=== PATIENT | male | born 1990 | race Caucasian/White ===

== ENCOUNTER 2017-08-30 05:37 | Inpatient (IN) | payer OTHER ==
[~2017-08-30] VITALS: Ht 185.4 cm; Wt 96.0 kg
[2017-08-30] MEDS ORDERED: LACTATED RINGERS 1,000 ML IV SCH (06:37)
[2017-08-30] MEDS ORDERED: FENTANYL PF 250 MCG/5ML ONE ×2 (06:44→07:47)
[2017-08-30] MEDS ORDERED: MIDAZOLAM 1 MG/ML, 2ML ONE (06:44)
[2017-08-30] MEDS ORDERED: PROPOFOL 10 MG/ML, 20ML ONE (06:46)
[2017-08-30] MEDS ORDERED: ROCURONIUM 10MG/ML,5ML ONE (06:48)
[2017-08-30] MEDS ORDERED: SUCCINYLCHOLINE 20 MG/ML, 10ML ONE (06:48)
[2017-08-30] MEDS ORDERED: WATER-INJECTION,STERILE 10 ML IV ONE (06:49)
[2017-08-30] MEDS ORDERED: CEFAZOLIN 1,000 MG ONE ×2 (06:49)
[2017-08-30] MEDS ORDERED: EPINEPHRINE 1 MG/ML, 1ML ONE (06:55)
[2017-08-30] MEDS ORDERED: BUPIVACAINE/PF 0.5% ONE (06:55)
[2017-08-30] MEDS ORDERED: THROMBIN 20,000 UNIT VIAL TP ONE (06:55)
[2017-08-30] MEDS ORDERED: PROPOFOL 50 ML ONE ×2 (06:56→08:08)
[2017-08-30] MEDS ORDERED: BACITRACIN 50,000 UNIT ONE (06:56)
[2017-08-30] MEDS ORDERED: ACETAMINOPHEN 500 MG TABLET PO ONE (07:00)
[2017-08-30] MEDS ORDERED: OxyconTIN ER 20 MG TAB.ER PO ONE (07:00)
[2017-08-30] MEDS ORDERED: LIDOCAINE-MPF 1%, 2ML INFIL ONE (07:00)
[2017-08-30] MEDS ORDERED: TRAM50TA2 PO (07:04)
[2017-08-30] MEDS ORDERED: CYCL-259 PO (07:04)
[2017-08-30] MEDS ORDERED: MELA10CA PO (07:04)
[2017-08-30] MEDS ORDERED: GABA300C10 PO (07:04)
[2017-08-30] MEDS ORDERED: CITA40TA5 PO (07:05)
[2017-08-30 07:09] VITALS: BP 134/84
[2017-08-30] MEDS ORDERED: PROMETHAZINE 12.5 MG SUPP PR PRN (07:30)
[2017-08-30] MEDS ORDERED: MORPHINE SULFATE 4 MG/ML, 1ML IVPush PRN (07:30)
[2017-08-30] MEDS ORDERED: PROMETHAZINE 25 MG SUPP PR PRN (07:30)
[2017-08-30] MEDS ORDERED: hydrALAzine 20 MG/ML, 1ML IV PRN (07:30)
[2017-08-30] MEDS ORDERED: ONDANSETRON ODT 8 MG PO PRN (07:30)
[2017-08-30] MEDS ORDERED: HYDROmorphone 1 MG/ML, 1ML IV PRN (07:30)
[2017-08-30] MEDS ORDERED: MEPERIDINE/PF 25MG/0.5ML IVPush PRN (07:30)
[2017-08-30] MEDS ORDERED: DIAZEPAM 5 MG/ML, 2ML IVPush PRN (07:30)
[2017-08-30] MEDS ORDERED: PROMETHAZINE 25 MG/ML, 1ML IV PRN (07:30)
[2017-08-30] MEDS ORDERED: LABETALOL 5MG/ML, 20ML IV PRN (07:30)
[2017-08-30] MEDS: FENTANYL PF 100 MCG/2ML IV PRN ×4 (09:55→10:20)
[2017-08-30] MEDS ORDERED: FENTANYL PF 100 MCG/2ML ONE ×2 (09:55→10:20)
[2017-08-30] MEDS: OXYcodone 5 MG/5 ML ORAL.SOL UDC PO PRN ×2 (11:59→12:30)
== END 2017-08-30 14:10 | disposition home or self-care (01) | DRG 519 ==
LOC: ORIP 05:37
PROVIDERS: ADMIT Neurological Surgery; ATTEND Neurological Surgery
PROC: 0RU30JZ Supplement Cervical Vertebral Disc with Synthetic Substitute, Open Approach (ICD-10-PCS; 2017-08-30)
PROC: 4A11X4G Monitoring of Peripheral Nervous Electrical Activity, Intraoperative, External Approach (ICD-10-PCS; 2017-08-30)
PROC: 0RB30ZZ Excision of Cervical Vertebral Disc, Open Approach (ICD-10-PCS; principal; 2017-08-30 07:30)
DX: M48.02 Spinal stenosis, cervical region (principal); M50.022 Cervical disc disorder at C5-C6 level with myelopathy; M50.122 Cervical disc disorder at C5-C6 level with radiculopathy; Z82.49 Family history of ischemic heart disease and other diseases of the circulatory system; Z90.49 Acquired absence of other specified parts of digestive tract
CPT/HCPCS: 72040; C1776; J0171; J0690; J2250; J2704; J3010; J3360; J3490; J0330; J7120